=== PATIENT | female | born 1980 | race Caucasian/White ===

== ENCOUNTER 2022-08-25 10:41 | Emergency (ER) | payer MEDICAID, SELFPAY ==
[2022-08-25 10:44] VITALS: BP 133/84; PULSE 68; RESP 14; TEMP 36.4; O2SAT 100; BMI 21.0
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
[2022-08-25] MEDS: Naproxen 250 MG Tablet 500 MG PO (11:47)
[2022-08-25 11:55] VITALS: BP 123/87; PULSE 61; RESP 16; O2SAT 97
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
== END 2022-08-25 13:12 | disposition home or self-care (01) ==
PROVIDERS: Emergency Provider Emergency Medicine; Visit Provider Emergency Medicine
DX: S09.90XA Unspecified injury of head, initial encounter (principal); R55 Syncope and collapse; S80.02XA Contusion of left knee, initial encounter; V43.62XA Car passenger injured in collision with other type car in traffic accident, initial encounter
CPT/HCPCS: 70450; 73564; 99284